=== PATIENT | female | born 1975 | race Caucasian/White ===

== ENCOUNTER 2016-10-29 03:11 | Emergency (ER) | payer BC ==
[~2016-10-29] VITALS: Ht 162.6 cm; Wt 108.6 kg
[~2016-10-29 03:11] MED LIST: HYDR10SO PO; NAPR220T95 PO; PAXI20TA26 PO; SERO300T PO; XANA1TAB6 PO
[2016-10-29 03:13] VITALS: BP 111/70; PULSE 122; RESP 20; TEMP 97.5; O2SAT 98
[2016-10-29] MEDS ORDERED: PAXI20TA PO (05:01)
[2016-10-29] MEDS ORDERED: XANA1TAB2 PO (05:01)
[2016-10-29] MEDS ORDERED: SERO300T PO (05:01)
[2016-10-29] MEDS ORDERED: SODIUM CHLOR 0.9% 1000 ML INJ 1,000 ML IV SCH (05:05)
[2016-10-29] MEDS ORDERED: HYDROmorphone HCL PF 1 MG/ML VIAL IV PUSH ONE ×2 (05:15→06:45)
[2016-10-29] MEDS ORDERED: ONDANSETRON HCL 4 MG/2 ML VIAL IVP ONE (05:15)
[2016-10-29] MEDS ORDERED: SODIUM CHLORIDE 0.9% FLUSH 5 ML FLUSH IVF PRN (05:15)
[2016-10-29 05:29] VITALS: BP 113/76; PULSE 105; RESP 20; O2SAT 98
[2016-10-29 05:40] LABS: AUTOMATED NEUTROPHIL # 12.8 TH/MM3 (1.8-7.7); BASOPHIL # 0.1 TH/MM3 (0-0.2); BASOPHIL % 0.3 % (0.0-2.0); EOSINOPHIL # 0.2 TH/MM3 (0-0.4); EOSINOPHIL % 0.9 % (0.0-4.0); HEMATOCRIT 45.2 % (35.0-46.0); HEMO FLAGS DIFF FINAL; LYMPH % 16.3 % (9.0-44.0); LYMPHOCYTE # 2.8 TH/MM3 (1.0-4.8); MEAN CELL VOLUME 93.7 FL (80.0-100.0); MEAN CORPUSCULAR HEMOGLOBIN 32.9 PG (27.0-34.0); MEAN CORPUSCULAR HGB CONC 35.1 % (32.0-36.0); MONO % 6.8 % (0.0-8.0); NEUT % 75.7 % (16.0-70.0); PLATELET COUNT 239 TH/MM3 (150-450); RED BLOOD COUNT 4.83 MIL/MM3 (4.00-5.30); RED CELL DISTRIBUTION WIDTH 13.5 % (11.6-17.2)
[2016-10-29 05:53] LABS: BACTERIA, URINE OCC /hpf; BLOOD, URINE TRACE (NEG); COMMENT (UR) CULTURE INDICATED; CULTURE IF INDICATED CULTURE INDICATED; GLUCOSE,URINE NEG (NEG); KETONE, URINE NEG (NEG); MUCUS URINE FEW /lpf (OCC); NITRITE,URINE POS (NEG); SQUAMOUS EPITHELIAL CELL URINE 4 /hpf (0-5); URINE COLOR YELLOW (YELLW/STRAW)
[2016-10-29 06:02] LABS: ANION GAP 8 MEQ/L (5-15); AST (GOT) 21 U/L (15-37); BICARBONATE 24.4 MEQ/L (21.0-32.0); BLOOD UREA NITROGEN 13 MG/DL (7-18); CHLORIDE 103 MEQ/L (98-107); GLOMERULAR FILTRATION RATE 63 ML/MIN (>89); POTASSIUM 4.2 MEQ/L (3.5-5.1); SODIUM (NA) 135 MEQ/L (136-145)
[2016-10-29 06:04] LABS: ALKALINE PHOSPHATASE 110 U/L (45-117); ALT (GPT) 56 U/L (10-53); TOTAL BILIRUBIN ADULT 0.4 MG/DL (0.2-1.0)
--- NOTE | 2016-10-29 06:06 | RADRPT ---
EXAM DATE/TIME: 10/29/2016 05:33 [facility] COMPARISON: CHEST SINGLE AP, March 15, 2016, 19:10. INDICATIONS : Chest pain. MEDICAL HISTORY : None. SURGICAL HISTORY : None. ENCOUNTER: Initial ACUITY: 1 day PAIN SCORE: 5/10 LOCATION: Bilateral chest FINDINGS: A single view of the chest demonstrates the lungs to be symmetrically aerated without evidence of mas s, infiltrate or effusion. The cardiomediastinal contours are unremarkable. Osseous structures are intact. CONCLUSION: No acute disease. Salas Thompson Jr., MD on October 29, 2016 at 6:04 Board Certified Radiologist. This report was verified electronically.
[2016-10-29 07:00] VITALS: BP 110/71; PULSE 93; RESP 20; O2SAT 98
[2016-10-29] MEDS ORDERED: IOHEXOL 350 MG/ML 10 ML VIAL (for RAD DIAG) IV ONE (08:17)
--- NOTE | 2016-10-29 08:49 | PD ---
HPI Chief Complaint: Abdominal Pain Time Seen by Provider: 05:05 Travel History International Travel<30 days: No Contact w/Intl Traveler<30days: No Traveled to known affect area: No History of Present Illness HPI 41-year-old female presents to the emergency department by private transportation for 4 days of progressive worsening abdominal pain and bloating. Patient is status post cholecystectomy. Patient denies . No prior history of ovarian cysts or fibroid tumors or endometriosis. No dysuria frequency or urgency. Patient denies fever chills. Patient has had anorexia and nausea. No hematemesis no coffee-ground emesis no melena hematochezia. No abnormal vaginal bleeding or vaginal discharge. Pain is worsened by ambulation. Pain is primarily right lower quadrant. Pain is quoted as 9/10 in intensity. PFSH Past Medical History Narrative Medical Bipolar anxiety cholecystectomy tubal ligation tobacco use nursing notes reviewed Bipolar Disorder: Yes Anxiety: Yes Cardiovascular Problems: No Immunizations Current: Yes Tetanus Vaccination: Unknown Influenza Vaccination: No ?: Not LMP: TUBAL : 2 Para: 2 Past Surgical History Section: No Cholecystectomy: Yes Social History Alcohol Use: No Tobacco Use: Yes (1 ppd) Substance Use: No Allergies-Medications (Allergen,Severity, Reaction): Coded Allergies: No Known Allergies (Unverified , 10/29/16) Reported Meds & Prescriptions Reported Meds & Active Scripts Active Reported Paxil (Paroxetine HCl) 20 Mg Tab 20 Mg PO DAILY Xanax (Alprazolam) 1 Mg Tab 1 Mg PO BID PRN Seroquel (Quetiapine Fumarate) 300 Mg Tab 600 Mg PO HS Review of Systems Except as stated in HPI: all other systems reviewed are Neg General / Constitutional: No: Fever, Chills HENT: No: Congestion Cardiovascular: No: Chest Pain or Discomfort Respiratory: No: Shortness of Breath Gastrointestinal: Positive: Nausea, Abdominal Pain, No: Vomiting Genitourinary: No: Dysuria, Flank Pain Musculoskeletal: No: Myalgias, Arthralgias Skin: No Rash Neurologic: No: Weakness Psychiatric: No: Anxiety Hematologic/Lymphatic: No: Lymph Node Enlargement Physical Exam Narrative GENERAL: Well developed well-nourished female in obvious discomfort no respiratory distress SKIN: Warm and dry. HEAD: Normocephalic. EYES: No scleral icterus. No injection or drainage. NECK: Supple, trachea midline. No JVD or lymphadenopathy. CARDIOVASCULAR: Regular rate and rhythm without murmurs, gallops, or rubs. RESPIRATORY: Breath sounds equal bilaterally. No accessory muscle use. GASTROINTESTINAL: Abdomen soft, marked reproducible tenderness to palpation, nondistended. MUSCULOSKELETAL: No cyanosis, or edema. BACK: Nontender without obvious deformity. No CVA tenderness. Data Data Last Documented VS Vital Signs Date Time Temp Pulse Resp B/P Pulse Ox O2 Delivery O2 Flow Rate FiO2 10/29/16 07:00 93 20 110/71 98 Room Air 10/29/16 03:13 97.5 Orders Complete Blood Count With Diff (10/29/16 05:05) Comprehensive Metabolic Panel (10/29/16 05:05) Lipase (10/29/16 05:05) Urinalysis - C+S If Indicated (10/29/16 05:05) Ct Abd/Pel W Iv Contrast(Rout) (10/29/16 05:05) Iv Access Insert/Monitor (10/29/16 05:05) Ecg Monitoring (10/29/16 05:05) Oximetry (10/29/16 05:05) Ondansetron Inj (Zofran Inj) (10/29/16 05:15) Sodium Chlor 0.9% 1000 Ml Inj (Ns 1000 M (10/29/16 05:05) Sodium Chloride 0.9% Flush (Ns Flush) (10/29/16 05:15) Chest, Single Ap (10/29/16 05:05) Ed Urine Pregnancytest Poc (10/29/16 05:05) Hydromorphone Pf Inj (Dilaudid Pf Inj) (10/29/16 05:15) Urine Culture (10/29/16 05:11) Hydromorphone Pf Inj (Dilaudid Pf Inj) (10/29/16 06:45) Iohexol 350 Inj (Omnipaque 350 Inj) (10/29/16 08:17) Labs Laboratory Tests Test 10/29/16 05:11 White Blood Count 17.0 TH/MM3 Red Blood Count 4.83 MIL/MM3 Hemoglobin 15.9 GM/DL Hematocrit 45.2 % Mean Corpuscular Volume 93.7 FL Mean Corpuscular Hemoglobin 32.9 PG Mean Corpuscular Hemoglobin 35.1 % Concent Red Cell Distribution Width 13.5 % Platelet Count 239 TH/MM3 Mean Platelet Volume 9.0 FL Neutrophils (%) (Auto) 75.7 % Lymphocytes (%) (Auto) 16.3 % Monocytes (%) (Auto) 6.8 % Eosinophils (%) (Auto) 0.9 % Basophils (%) (Auto) 0.3 % Neutrophils # (Auto) 12.8 TH/MM3 Lymphocytes # (Auto) 2.8 TH/MM3 Monocytes # (Auto) 1.1 TH/MM3 Eosinophils # (Auto) 0.2 TH/MM3 Basophils # (Auto) 0.1 TH/MM3 CBC Comment DIFF FINAL Differential Comment Urine Color YELLOW Urine Turbidity HAZY Urine pH 6.0 Urine Specific [place] 1.017 Urine Protein 30 mg/dL Urine Glucose (UA) NEG mg/dL Urine Ketones NEG mg/dL Urine Occult Blood TRACE Urine Nitrite POS Urine Bilirubin NEG Urine Urobilinogen LESS THAN 2.0 MG/DL Urine Leukocyte Esterase TRACE Urine RBC 1 /hpf Urine WBC 2 /hpf Urine Squamous Epithelial 4 /hpf Cells Urine Bacteria OCC /hpf Urine Mucus FEW /lpf Microscopic Urinalysis Comment CULTURE INDICATED Sodium Level 135 MEQ/L Potassium Level 4.2 MEQ/L Chloride Level 103 MEQ/L Carbon Dioxide Level 24.4 MEQ/L Anion Gap 8 MEQ/L Blood Urea Nitrogen 13 MG/DL Creatinine 0.97 MG/DL Estimat Glomerular Filtration 63 ML/MIN Rate Random Glucose 109 MG/DL Calcium Level 8.9 MG/DL Total Bilirubin 0.4 MG/DL Aspartate Amino Transf 21 U/L (AST/SGOT) Alanine Aminotransferase 56 U/L (ALT/SGPT) Alkaline Phosphatase 110 U/L Total Protein 7.9 GM/DL Albumin 4.0 GM/DL Lipase 128 U/L [facility] Medical Decision Making Medical Screen Exam Complete: Yes Emergency Medical Condition: Yes Medical Record Reviewed: Yes Interpretation(s) Laboratory Tests Test 10/29/16 05:11 White Blood Count 17.0 TH/MM3 Red Blood Count 4.83 MIL/MM3 Hemoglobin 15.9 GM/DL Hematocrit 45.2 % Mean Corpuscular Volume 93.7 FL Mean Corpuscular Hemoglobin 32.9 PG Mean Corpuscular Hemoglobin 35.1 % Concent Red Cell Distribution Width 13.5 % Platelet Count 239 TH/MM3 Mean Platelet Volume 9.0 FL Neutrophils (%) (Auto) 75.7 % Lymphocytes (%) (Auto) 16.3 % Monocytes (%) (Auto) 6.8 % Eosinophils (%) (Auto) 0.9 % Basophils (%) (Auto) 0.3 % Neutrophils # (Auto) 12.8 TH/MM3 Lymphocytes # (Auto) 2.8 TH/MM3 Monocytes # (Auto) 1.1 TH/MM3 Eosinophils # (Auto) 0.2 TH/MM3 Basophils # (Auto) 0.1 TH/MM3 CBC Comment DIFF FINAL Differential Comment Urine Color YELLOW Urine Turbidity HAZY Urine pH 6.0 Urine Specific [place] 1.017 Urine Protein 30 mg/dL Urine Glucose (UA) NEG mg/dL Urine Ketones NEG mg/dL Urine Occult Blood TRACE Urine Nitrite POS Urine Bilirubin NEG Urine Urobilinogen LESS THAN 2.0 MG/DL Urine Leukocyte Esterase TRACE Urine RBC 1 /hpf Urine WBC 2 /hpf Urine Squamous Epithelial 4 /hpf Cells Urine Bacteria OCC /hpf Urine Mucus FEW /lpf Microscopic Urinalysis Comment CULTURE INDICATED Sodium Level 135 MEQ/L Potassium Level 4.2 MEQ/L Chloride Level 103 MEQ/L Carbon Dioxide Level 24.4 MEQ/L Anion Gap 8 MEQ/L Blood Urea Nitrogen 13 MG/DL Creatinine 0.97 MG/DL Estimat Glomerular Filtration 63 ML/MIN Rate Random Glucose 109 MG/DL Calcium Level 8.9 MG/DL Total Bilirubin 0.4 MG/DL Aspartate Amino Transf 21 U/L (AST/SGOT) Alanine Aminotransferase 56 U/L (ALT/SGPT) Alkaline Phosphatase 110 U/L Total Protein 7.9 GM/DL Albumin 4.0 GM/DL Lipase 128 U/L Differential Diagnosis Abdominal pain, appendicitis, pyelonephritis, UTI, ruptured ovarian cyst, ovarian torsion, bowel obstruction Narrative Course Patient placed on tour actor IV access obtained specimens collected and sent for resulting agent administer Dilaudid 1 mg IV along with Zofran 4 mg IV Patient continues to have pain and received Dilaudid and a second dose; total white cell count elevated at 17,000 with left shift patient has abnormal urinalysis and CT abdomen and pelvis is pending; presumptive antibiotic administered Cipro 40 mg IV and Flagyl 500 mg IV At 8:50 AM patient's care signed over to oncoming physician for follow-up of pending CT and patient disposition Echo Castorena MD Oct 29, 2016 08:49
--- NOTE | 2016-10-29 08:57 | RADRPT ---
EXAM DATE/TIME: 10/29/2016 08:08 [facility] COMPARISON: No previous studies available for comparison. INDICATIONS : Epigastric pain and abdominal swelling for three days. IV CONTRAST: 94 cc Omnipaque 350 (iohexol) IV ORAL CONTRAST: No oral contrast ingested. RADIATION DOSE: 16.69 CTDIvol (mGy) MEDICAL HISTORY : None SURGICAL HISTORY : Cholecystectomy. Tubal ligation. ENCOUNTER: Initial ACUITY: 3 days PAIN SCALE: 8/10 LOCATION: Bilateral upper quadrant TECHNIQUE: Volumetric scanning of the abdomen and pelvis was performed. Using automated exposure control and ad justment of the mA and/or kV according to patient size, radiation dose was kept as low as reasonably achievable to obtain optimal diagnostic quality images. FINDINGS: LOWER LUNGS: The visualized lower lungs are clear. LIVER: Homogeneous density without lesion. There is no dilation of the biliary tree. No calcified gallston es. The patient is post cholecystectomy. SPLEEN: Normal size without lesion. PANCREAS: Within normal limits. KIDNEYS: Normal in size and shape. There is no mass, stone or hydronephrosis. ADRENAL GLANDS: Within normal limits. VASCULAR: There is no aortic aneurysm. BOWEL/MESENTERY: The stomach, small bowel, and colon demonstrate no acute abnormality. There is no free intraperitone al air or fluid. ABDOMINAL WALL: Within normal limits. RETROPERITONEUM: There is no lymphadenopathy. BLADDER: No wall thickening or mass. REPRODUCTIVE: Within normal limits. INGUINAL: There is no lymphadenopathy or hernia. MUSCULOSKELETAL: Within normal limits for patient age. CONCLUSION: 1. The patient is post cholecystectomy. 2. The CT scan of the abdomen and pelvis is within normal limits. Gavin Link MD on October 29, 2016 at 8:40 Board Certified Radiologist. This report was verified electronically.
[2016-10-29 09:30] VITALS: BP 119/76; PULSE 92; RESP 18; O2SAT 98
[2016-10-29] MEDS ORDERED: ZOFR4TAB PO (10:51)
[2016-10-29] MEDS ORDERED: TRAM50TA PO (10:51)
--- NOTE | 2016-10-29 10:55 | PD ---
Data Data Last Documented VS Vital Signs Date Time Temp Pulse Resp B/P Pulse Ox O2 Delivery O2 Flow Rate FiO2 10/29/16 09:30 92 18 119/76 98 Room Air 10/29/16 03:13 97.5 Orders Complete Blood Count With Diff (10/29/16 05:05) Comprehensive Metabolic Panel (10/29/16 05:05) Lipase (10/29/16 05:05) Urinalysis - C+S If Indicated (10/29/16 05:05) Ct Abd/Pel W Iv Contrast(Rout) (10/29/16 05:05) Iv Access Insert/Monitor (10/29/16 05:05) Ecg Monitoring (10/29/16 05:05) Oximetry (10/29/16 05:05) Ondansetron Inj (Zofran Inj) (10/29/16 05:15) Sodium Chlor 0.9% 1000 Ml Inj (Ns 1000 M (10/29/16 05:05) Sodium Chloride 0.9% Flush (Ns Flush) (10/29/16 05:15) Chest, Single Ap (10/29/16 05:05) Ed Urine Pregnancytest Poc (10/29/16 05:05) Hydromorphone Pf Inj (Dilaudid Pf Inj) (10/29/16 05:15) Urine Culture (10/29/16 05:11) Hydromorphone Pf Inj (Dilaudid Pf Inj) (10/29/16 06:45) Iohexol 350 Inj (Omnipaque 350 Inj) (10/29/16 08:17) Labs Laboratory Tests Test 10/29/16 05:11 White Blood Count 17.0 TH/MM3 Red Blood Count 4.83 MIL/MM3 Hemoglobin 15.9 GM/DL Hematocrit 45.2 % Mean Corpuscular Volume 93.7 FL Mean Corpuscular Hemoglobin 32.9 PG Mean Corpuscular Hemoglobin 35.1 % Concent Red Cell Distribution Width 13.5 % Platelet Count 239 TH/MM3 Mean Platelet Volume 9.0 FL Neutrophils (%) (Auto) 75.7 % Lymphocytes (%) (Auto) 16.3 % Monocytes (%) (Auto) 6.8 % Eosinophils (%) (Auto) 0.9 % Basophils (%) (Auto) 0.3 % Neutrophils # (Auto) 12.8 TH/MM3 Lymphocytes # (Auto) 2.8 TH/MM3 Monocytes # (Auto) 1.1 TH/MM3 Eosinophils # (Auto) 0.2 TH/MM3 Basophils # (Auto) 0.1 TH/MM3 CBC Comment DIFF FINAL Differential Comment Urine Color YELLOW Urine Turbidity HAZY Urine pH 6.0 Urine Specific [place] 1.017 Urine Protein 30 mg/dL Urine Glucose (UA) NEG mg/dL Urine Ketones NEG mg/dL Urine Occult Blood TRACE Urine Nitrite POS Urine Bilirubin NEG Urine Urobilinogen LESS THAN 2.0 MG/DL Urine Leukocyte Esterase TRACE Urine RBC 1 /hpf Urine WBC 2 /hpf Urine Squamous Epithelial 4 /hpf Cells Urine Bacteria OCC /hpf Urine Mucus FEW /lpf Microscopic Urinalysis Comment CULTURE INDICATED Sodium Level 135 MEQ/L Potassium Level 4.2 MEQ/L Chloride Level 103 MEQ/L Carbon Dioxide Level 24.4 MEQ/L Anion Gap 8 MEQ/L Blood Urea Nitrogen 13 MG/DL Creatinine 0.97 MG/DL Estimat Glomerular Filtration 63 ML/MIN Rate Random Glucose 109 MG/DL Calcium Level 8.9 MG/DL Total Bilirubin 0.4 MG/DL Aspartate Amino Transf 21 U/L (AST/SGOT) Alanine Aminotransferase 56 U/L (ALT/SGPT) Alkaline Phosphatase 110 U/L Total Protein 7.9 GM/DL Albumin 4.0 GM/DL Lipase 128 U/L MDM Supervised Visit with MARGUERITE: No Narrative Course This case is checked out to me by Dr. Castorena. She is here for bilateral lower quadrant abdominal pain. Extensive workup was done which I reviewed in detail with the patient. She has some leukocytosis of 17,000 but normal metabolic profile and clean urine. Her chest x-ray is normal. CT of abdomen and pelvis was normal as well. I personally discussed this with radiologist Dr. Tyrell Link. Her appendix is normal. I did a pelvic exam with the nurse present just to rule out PID or other abnormality. Pelvic exam fairly normal. No clinical sign of infection. Etiology of her abdominal pain is unclear. I don' t see any evidence of emergent thing for hospitalization. I wrote her medicine for pain and nausea to use as needed. Recommend she follow up with her family physician to start Diagnosis Primary Impression: Abdominal pain Qualified Code: R10.30 - Lower abdominal pain Additional Instruction: The patient was advised to follow up with their physician and return if they worsen. The patient was warned about potential sedation for the medications they will receive on prescription. Med/Other Pt SpecificInfo: Prescription(s) given Scripts Ondansetron (Zofran)4 Mg Tab4 Mg PO Q6HR PRN (NAUSEA OR VOMITING) #12 TAB Ref 0 Prov:Javi Pelaez MD 10/29/16 Tramadol 50 Mg Tab50 Mg PO Q6H PRN (PAIN) #25 TAB Ref 0 Prov:Javi Pelaez MD 10/29/16 Disposition: 01 DISCHARGE HOME Condition: Stable Javi Pelaez MD Oct 29, 2016 10:55
== END 2016-10-29 11:07 | disposition home or self-care (01) ==
LOC: NEPC 03:11
DX: N39.0 Urinary tract infection, site not specified (principal); B96.20 Unspecified Escherichia coli [E. coli] as the cause of diseases classified elsewhere
CPT/HCPCS: 71010; 74177; 80053; 81001; 83690; 84703; 85025; 87077; 87086; 87186; 96374; 96375; 96376; 99284; J1170; J2405; J7030; Q9967